=== PATIENT | female | born 1995 | race Caucasian/White ===

== ENCOUNTER 2017-08-10 15:24 | Emergency (ER) | payer OTHER ==
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
[2017-08-10 16:31] LABS: APPEARANCE,URINE SLIGHTLY-CLOUDY; BILIRUBIN,URINE NEGATIVE (NEGATIVE); COLOR,URINE YELLOW; GLUCOSE, URINE NEGATIVE (NEGATIVE); KETONES,URINE TRACE mg/dL (NEGATIVE); LEUKOCYTE ESTERASE,URINE NEGATIVE (NEGATIVE); NITRITE,URINE NEGATIVE (NEGATIVE); PROTEIN,URINE NEGATIVE (NEGATIVE); URINE SPECIFIC GRAVITY 1.024; UROBILINOGEN,URINE NEGATIVE mg/dL (<2.0)
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
[2017-08-10] MEDS ORDERED: KETOROLAC TROMETHAMINE 60 MG/2 ML SDV IM ONE (18:08)
[2017-08-10 18:50] VITALS: BP 121/73
== END 2017-08-10 18:49 | disposition home or self-care (01) ==
LOC: ER 15:24
DX: M54.9 Dorsalgia, unspecified (principal); M25.551 Pain in right hip; R10.30 Lower abdominal pain, unspecified; V87.7XXA Person injured in collision between other specified motor vehicles (traffic), initial encounter
CPT/HCPCS: 99284; 96372; 81025; 81001; 74176; J1885

== ENCOUNTER → 2018-06-02 | Outpatient (CLI) | payer OTHER ==
--- NOTE | 2018-06-02 19:16 | RADIOLOGY REPORT (SQ) ---
EXAM DESCRIPTION: CERV SP 4 OR 5 VIEWS COMPLETED DATE/TIME: 06/02/2018 7:04 pm REASON FOR STUDY: M54.2 NECK PAIN COMPARISON: None. NUMBER OF VIEWS: Five views. TECHNIQUE: AP, lateral, obliques and odontoid radiographic images acquired of the cervical spine. LIMITATIONS: None. FINDINGS: MINERALIZATION: Normal. ALIGNMENT: Anatomic. VERTEBRAE: Vertebral bodies of normal height. DISCS: No significant osteophytes or sclerosis. Disc height maintained. FORAMINA: No osteophytes or foraminal narrowing. LATERAL AND POSTERIOR ELEMENTS: Facets, lateral masses and spinous processes without significant find ings. HARDWARE: None in the spine. SOFT TISSUES: No masses or calcifications. Lung apices clear. OTHER: No other significant finding. IMPRESSION: NO SIGNIFICANT RADIOGRAPHIC FINDING IN THE CERVICAL SPINE. TECHNICAL DOCUMENTATION: JOB ID: [id number] [employer]- All Rights Reserved Reading location - IP/workstation name: [email or web address]
== END ==
LOC: RAD 18:41
PROVIDERS: ATTEND Nurse Practitioner Family
DX: M54.2 Cervicalgia (principal)
CPT/HCPCS: 72050

== ENCOUNTER 2020-01-03 21:20 | Emergency (ER) | payer OTHER ==
[2020-01-03 21:35] VITALS: BP 125/77
[2020-01-03] MEDS ORDERED: METHYLPREDNISOLONE INJ 125 MG/2 ML SDV IV ONE (21:48)
[2020-01-03] MEDS ORDERED: FAMOTIDINE INJ/PF 20 MG/2 ML SDV IV ONE (21:48)
[2020-01-03] MEDS ORDERED: DIPHENHYDRAMINE HCL 50 MG/ML VIAL IV ONE (21:48)
--- NOTE | 2020-01-03 21:50 | ER Document Report ---
ED Medical Screen (RME) - General Chief Complaint: Bee Sting Stated Complaint: BEE STING FACIAL SWELLING Primary Care Provider: LAVON ALMANZAR FNP-C [Primary Care Provider] - Follow up as needed Notes: Patient is a 24-year-old white female with no significant past medical history presents to the emergency department the chief complaint of insect sting to the face that occurred an hour and a half ago. 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 She states she is never had to use an EpiPen, never been hospitalized and never had to be intubated. She reports about an hour and a half ago she suspects it was a sting from some sort of wasp or insect. Reports feeling the discomfort to the forehead above the right eyebrow. She states gradually over the hour and a half she began swelling around the eyes and nose near the site of sting. She denies removing any stinger or seeing any insect. She denies tongue or throat swelling. No difficulty breathing or swallowing. Medications to be administered, Solu-Medrol, Benadryl and Pepcid. Patient to be sent to the emergency department room to be monitored. I have treated and performed a rapid initial assessment of this patient. A comprehensive ED assessment and evaluation of the patient, analysis of test results and completion of medical decision making process will be conducted by additional ED providers. PHYSICAL EXAMINATION: GENERAL: Well-appearing, well-nourished and in no acute distress. A&Ox4. Answers questions appropriately. TRAVEL OUTSIDE OF THE [place] IN LAST 30 DAYS: No - Related Data Allergies/Adverse Reactions: fluoxetine [From Prozac] Allergy (Verified 08/10/17 15:25) Past Medical History Renal/ Medical History: Denies: Hx Peritoneal Dialysis Physical Exam - Vital signs Vitals: Temp Pulse Resp BP Pulse Ox 99.1 F 72 20 125/77 98 01/03/20 21:25 01/03/20 21:25 01/03/20 21:25 01/03/20 21:25 01/03/20 21:25 Course - Vital Signs Vital signs: Temp Pulse Resp BP Pulse Ox 99.1 F 72 20 125/77 98 01/03/20 21:25 01/03/20 21:25 01/03/20 21:25 01/03/20 21:25 01/03/20 21:25 Doctor's Discharge - Discharge Referrals: LAVON ALMANZAR, SOFTWARE APPLICATIONS ENGINEER-C [Primary Care Provider] - Follow up as needed
--- NOTE | 2020-01-03 22:51 | ER Document Report ---
ED Allergic Reaction - General Chief Complaint: Bee Sting Stated Complaint: BEE STING FACIAL SWELLING Time Seen by Provider: 01/03/20 22:44 Notes: Patient is a 24-year-old female that comes emergency department for chief complaint of a bee sting to the right side of her face, this occurred approximately 1.5 hours prior to arrival. She states that she started to have swelling and itching of her face, initially to the forehead above the right eyebrow and then gradually around the eyes and nose near the site of the sting. She did not actually see the insect, she did not remove the stinger. She states she was allergic to bee stings as a child but she never required an EpiPen, she has never been hospitalized, never been intubated. She denies tongue or throat swelling, difficulty swallowing or breathing, rash over the body, or any other complaints. She denies . TRAVEL OUTSIDE OF THE [place] IN LAST 30 DAYS: No - Related Data Allergies/Adverse Reactions: fluoxetine [From [employer]] Allergy (Verified 08/10/17 15:25) Past Medical History - General Information source: Patient - Social History Smoking Status: Never Smoker Frequency of alcohol use: None Drug Abuse: None Lives with: Family Family History: Reviewed & Not Pertinent Renal/ Medical History: Denies: Hx Peritoneal Dialysis Surgical Hx: Negative - Immunizations Immunizations up to date: Yes Hx Diphtheria, Pertussis, Tetanus Vaccination: Yes Review of Systems - Review of Systems Constitutional: No symptoms reported EENT: See HPI Cardiovascular: No symptoms reported Respiratory: No symptoms reported Gastrointestinal: No symptoms reported Genitourinary: No symptoms reported Female Genitourinary: No symptoms reported Musculoskeletal: No symptoms reported Skin: See HPI Hematologic/Lymphatic: No symptoms reported Neurological/Psychological: No symptoms reported Physical Exam - Vital signs Vitals: Temp Pulse Resp BP Pulse Ox 99.1 F 72 20 125/77 98 01/03/20 21:25 01/03/20 21:25 01/03/20 21:25 01/03/20 21:25 01/03/20 21:25 - Notes Notes: GENERAL: Alert, interacts well. No acute distress. HEAD: Normocephalic, atraumatic. EYES: There is slight facial edema just above the eyebrows, of the upper eyelids, and of the cheeks. Does not appear to occlude the lower eyelids, does not include the lips. No open wounds. Pupils equal, round, and reactive to light. Extraocular movements intact. ENT: Oral mucosa moist, tongue midline and normal size, uvula normal. Oropharynx unremarkable. Airway patent. NECK: Full range of motion. Supple. Trachea midline. No lymphadenopathy. LUNGS: Clear to auscultation bilaterally, no wheezes, rales, or rhonchi. No respiratory distress. Non-tender chest wall. HEART: Regular rate and rhythm. No murmur ABDOMEN: Soft, non-tender. Non-distended. EXTREMITIES: Moves all 4 extremities spontaneously. No edema, normal radial and dorsalis pedis pulses bilaterally. No cyanosis. BACK: no cervical, thoracic, lumbar midline tenderness. No saddle anesthesia, normal distal neurovascular exam. Moves all extremities in full range of motion. NEUROLOGICAL: Alert and oriented x3. Normal speech. Cranial nerves II through XII grossly intact. Strength 5/5 in all extremities. PSYCH: Normal affect, normal mood. SKIN: Warm, dry, normal turgor. No rashes or lesions noted. Course - Re-evaluation Re-evalutation: 01/03/20 23:55 Patient actually seems to have slightly more swelling of the face/cheeks despite the antihistamines and Solu-Medrol, she will be given epinephrine at this time. However her airway is patent, she has no difficulty breathing or swallowing, no additional findings. On reevaluation patient is slightly improved although she still does have some facial edema. Oral pharyngeal exam and airway exam are normal, skin exam is normal, patient will be continue to be monitored. 01/03/20 Patient monitored for 2.5 more hours with slight improvement and no worsening symptoms. I discussed with patient. Patient will be discharged on steroids, antihistamines, and she was provided with an EpiPen. I discussed return precautions in detail with patient and her significant other. Stable and well- appearing at time of discharge. - Vital Signs Vital signs: Temp Pulse Resp BP Pulse Ox 98.1 F 101 H 20 125/77 98 01/04/20 02:21 01/04/20 02:21 01/03/20 21:25 01/03/20 21:25 01/04/20 02:21 Discharge - Discharge Clinical Impression: Facial swelling Insect sting Qualifiers: Encounter type: initial encounter Injury intent: accidental or unintentional Qualified Code(s): T63.481A - Toxic effect of venom of other arthropod, accidental (unintentional), initial encounter Allergic reaction Qualifiers: Encounter type: initial encounter Qualified Code(s): T78.40XA - Allergy, unspecified, initial encounter Condition: Stable Disposition: HOME, SELF-CARE Additional Instructions: Your evaluation is consistent with an allergic reaction to the insect/bee sting. The swelling should completely resolve with time. Take the prednisone to completion, take your cetirizine daily for 1 week, take the Pepcid as prescribed for 1 week. Follow-up with primary care. In the event of worsening or severe allergic symptoms (swelling of the lips, tongue, throat, difficulty breathing, etc.) take the epinephrine pen and return immediately to the emergency department. Return for any other concerning symptoms. Prescriptions: Prednisone [Deltasone 10 mg Tablet] 10 mg PO ASDIR PRN #21 tablet PRN Reason: Epinephrine [Epipen 2-Gurpreet] 0.3 mg IM ASDIR PRN #1 packet PRN Reason: Famotidine [Pepcid 20 mg Tablet] 20 mg PO BID #14 tablet Forms: Return to Work, Treatment of Relative/Child
[2020-01-03] MEDS ORDERED: EPINEPHRINE INJ/PF 1 MG/1 ML AMPULE IM ONE (23:57)
== END 2020-01-04 02:31 | disposition home or self-care (01) ==
LOC: ER 21:20
DX: T63.441A Toxic effect of venom of bees, accidental (unintentional), initial encounter (principal); R22.0 Localized swelling, mass and lump, head; X58.XXXA Exposure to other specified factors, initial encounter
CPT/HCPCS: 99282; 96372; 96374; 96375; J1200; J0171; J2930; S0028